=== PATIENT | male | born 1955 | race Caucasian/White ===

== ENCOUNTER 2020-09-16 10:25 | Outpatient (CLI) | payer MEDICARE, OTHER | END 2020-09-16 10:26 | disposition home or self-care (01) | LOC: TBSIIMAG 10:25 | PROVIDERS: ATTEND Neurological Surgery | DX: M48.56XA Collapsed vertebra, not elsewhere classified, lumbar region, initial encounter for fracture (principal); M48.54XA Collapsed vertebra, not elsewhere classified, thoracic region, initial encounter for fracture; M81.0 Age-related osteoporosis without current pathological fracture; M47.816 Spondylosis without myelopathy or radiculopathy, lumbar region | CPT/HCPCS: 72072; 72100 ==

== ENCOUNTER 2020-10-05 08:39 | Outpatient (CLI) | payer MEDICARE, OTHER | END 2020-10-05 08:40 | disposition home or self-care (01) | LOC: TBSIIMAG 08:39 | PROVIDERS: ATTEND Neurological Surgery | DX: S32.031A Stable burst fracture of third lumbar vertebra, initial encounter for closed fracture (principal); S22.009A Unspecified fracture of unspecified thoracic vertebra, initial encounter for closed fracture; M47.814 Spondylosis without myelopathy or radiculopathy, thoracic region; M47.816 Spondylosis without myelopathy or radiculopathy, lumbar region; M43.16 Spondylolisthesis, lumbar region | CPT/HCPCS: 72070; 72100 ==